=== PATIENT | male | born 1965 | race Caucasian/White ===

== ENCOUNTER 2020-12-24 14:45 | Inpatient (IN) | payer BC ==
[2020-12-25 14:17] VITALS: BMI 25.7
[2020-12-29] MEDS ORDERED: Tranexamic Acid 1,000 MG/10 ML VIAL ONE (10:44)
[2020-12-29] MEDS ORDERED: Levofloxacin 500 mg/D5W 100 ml Premix Bag ONE (10:45)
[2020-12-29] MEDS ORDERED: Sodium Chloride 0.9% 100 ML ONE (10:45)
[2020-12-29] MEDS ORDERED: Vancomycin 1.5 GRAM/300 ML BAG 1.5 GM in Premix Bag 1 BAG IVPB SCH (10:45)
[2020-12-29] MEDS ORDERED: Dexamethasone 4 mg/ml Vial ONE (10:54)
[2020-12-29] MEDS ORDERED: Midazolam HCl 2 mg/2 ml Vial ONE (10:59)
[2020-12-29] MEDS ORDERED: Fentanyl 100 MCG/2 ML VIAL ONE ×6 (10:59→18:00)
[2020-12-29] MEDS ORDERED: Bupivacaine HCl 0.5%/Epinephrine 1:200,000/PF 30 ml Vial ONE (11:15)
[2020-12-29] MEDS ORDERED: Dexamethasone 20 MG/5 ML VIAL ONE ×2 (11:15→12:01)
[2020-12-29] MEDS ORDERED: diphenhydrAMINE 25 MG CAP PO PRN (11:35)
[2020-12-29] MEDS ORDERED: HYDROcodone/Acetaminophen 10/325 mg Tablet PO PRN (11:35)
[2020-12-29] MEDS ORDERED: Promethazine HCl 25 MG/ML VIAL IM PRN ×2 (11:35→13:13)
[2020-12-29] MEDS ORDERED: Ondansetron PF 4 MG/2 ML Vial IVP PRN (11:35)
[2020-12-29] MEDS ORDERED: Zolpidem Tartrate 5 MG TAB PO PRN (11:35)
[2020-12-29] MEDS ORDERED: Fentanyl 100 MCG/2 ML VIAL SLOW IVP PRN (11:35)
[2020-12-29] MEDS ORDERED: Acetaminophen 325 MG TAB PO PRN (11:35)
[2020-12-29] MEDS ORDERED: Vancomycin 1 GM in Premix Bag 1 BAG IVPB SCH (11:45)
[2020-12-29] MEDS ORDERED: Ketorolac Tromethamine 30 MG/ML VIAL ONE (12:01)
[2020-12-29] MEDS ORDERED: PHENYLEPHRINE-NS 100 MCG/ML 10 ML SYRINGE ONE (12:01)
[2020-12-29] MEDS ORDERED: Rocuronium Bromide 10 MG/ML (10ML VIAL) ONE (12:01)
[2020-12-29] MEDS ORDERED: Ondansetron PF 4 MG/2 ML Vial ONE (12:01)
[2020-12-29] MEDS ORDERED: PROPOFOL 200 MG/20 ML VIAL ONE (12:01)
[2020-12-29] MEDS ORDERED: Lidocaine 1% PF 5 ML VIAL ONE (12:01)
[2020-12-29] MEDS ORDERED: Labetalol HCl 100 MG/20 ML VIAL ONE (12:01)
[2020-12-29] MEDS ORDERED: Meperidine HCl/PF 25 MG/ML VIAL SLOW IVP PRN (13:13)
[2020-12-29] MEDS ORDERED: HYDROmorphone 2 MG/ML VIAL SLOW IVP PRN (13:13)
[2020-12-29] MEDS ORDERED: Promethazine HCl 25 MG/ML VIAL SLOW IVP PRN (13:13)
[2020-12-29] MEDS ORDERED: SUGAMMADEX SODIUM 200 MG/2 ML VIAL ONE (13:16)
[2020-12-29] MEDS ORDERED: HYDROmorphone 2 MG/ML VIAL ONE (14:41)
[2020-12-29] MEDS: Sodium Chloride 0.9% 1,000 ML IV SCH ×2 (19:19→23:35)
[2020-12-29] MEDS: Ketorolac Tromethamine 30 MG/ML VIAL IVP SCH ×2 (19:19→21:13)
[2020-12-29] MEDS: Ferrous Gluconate 324 MG TAB PO SCH (20:31)
[2020-12-29] MEDS: Senokot S 8.6-50 MG TAB PO SCH (20:31)
[2020-12-29] MEDS: Aspirin 81 mg Enteric Coated Tablet PO SCH (20:31)
[2020-12-30] MEDS: HYDROcodone/Acetaminophen 10/325 mg Tablet PO PRN ×5 (00:46→21:23)
[2020-12-30] MEDS: Ketorolac Tromethamine 30 MG/ML VIAL IVP SCH ×3 (05:22→21:23)
[2020-12-30 05:55] LABS: Hemoglobin 12.8 g/dL (14.0-18.0); Mean Corpuscular HGB CONC 33.5 g/dL (32.0-36.0); Mean Corpuscular Hemoglobin 32.7 pg (27.0-31.0); Mean Corpuscular Volume 97.8 fL (78.0-98.0); Mean Platelet Volume 9.1 fL (7.4-10.4); Platelet Count 226 thou/uL (130-400); RBC Distribution Width 12.1 % (11.5-14.5); Red Blood Cell (RBC) Count 3.91 mill/uL (4.70-6.10); White Blood Cell (WBC) Count 11.1 thou/uL (4.8-10.8)
[2020-12-30] MEDS: Sodium Chloride 0.9% 1,000 ML IV SCH ×2 (07:14→14:52)
[2020-12-30] MEDS: Senokot S 8.6-50 MG TAB PO SCH ×2 (08:27→21:23)
[2020-12-30] MEDS: Multivitamin W/ Minerals 1 TAB PO SCH (08:27)
[2020-12-30] MEDS: Ferrous Gluconate 324 MG TAB PO SCH ×2 (08:28→21:23)
[2020-12-30] MEDS: Aspirin 81 mg Enteric Coated Tablet PO SCH ×2 (08:28→21:23)
[2020-12-31] MEDS: HYDROcodone/Acetaminophen 10/325 mg Tablet PO PRN ×2 (03:55→12:08)
[2020-12-31] MEDS: Sodium Chloride 0.9% 1,000 ML IV SCH (03:57)
[2020-12-31] MEDS: Ketorolac Tromethamine 30 MG/ML VIAL IVP SCH (06:05)
[2020-12-31 08:30] VITALS: TEMP 97.9
[2020-12-31] MEDS: Aspirin 81 mg Enteric Coated Tablet PO SCH (08:38)
[2020-12-31] MEDS: Multivitamin W/ Minerals 1 TAB PO SCH (08:38)
[2020-12-31] MEDS: Ferrous Gluconate 324 MG TAB PO SCH (08:38)
[2020-12-31] MEDS: Senokot S 8.6-50 MG TAB PO SCH (08:38)
[2020-12-31 12:38] VITALS: BP 132/81
== END 2020-12-31 14:44 | disposition home or self-care (01) | DRG 470 ==
LOC: SURG A 12-29 08:34 → SURG B 12-29 18:08
PROVIDERS: ADMIT Orthopaedic Surgery; ATTEND Orthopaedic Surgery
PROC: 0SRB039 Replacement of Left Hip Joint with Ceramic Synthetic Substitute, Cemented, Open Approach (ICD-10-PCS; principal; 2020-12-29)
DX: M16.12 Unilateral primary osteoarthritis, left hip (principal); D64.9 Anemia, unspecified; Z20.822 Contact with and (suspected) exposure to COVID-19
CPT/HCPCS: 36415; 85027; J1100; J1170; J1885; J1956; J2250; J2405; J2704; J3010; J3490

== ENCOUNTER 2020-12-24 14:55 | Outpatient (CLI) | payer BC ==
[2020-12-24 15:58] LABS: #Eosinphils 0.1 10x3/uL (0.0-0.5); #Monocytes 0.6 10x3/uL (0.0-1.1); #Neutrophils 3.8 10x3/uL (1.5-8.4); %Basophils 0.5 % (0.0-2.0); %Eosinophils 1.8 % (0.0-6.0); %Lymphocytes 25.7 % (18.0-47.0); %Monocytes 9.8 % (0.0-10.0); Mean Platelet Volume 11.4 fl (7.4-10.4); Platelet Count 274 10x3/uL (150-450); RBC Distribution Width 13.3 % (11.5-14.5); Red Blood Cell (RBC) Count 4.84 10x6/uL (4.32-5.72)
[2020-12-24 16:00] LABS: INR-International Normal Ratio 1.1; Prothrombin Time 11.9 sec (9.5-12.1)
[2020-12-24 16:51] LABS: Bilirubin Neg (Negative); Blood, Urine Negative (Negative); Clarity Clear (Clear); Glucose, Urine (Dipstick) Normal (Negative); Ketone, Urine Negative (Negative); Leukocyte Negative (Negative); Nitrite Negative (Negative); Protein, Urine (Dipstick) Negative (Neg-Trace); Urobilinogen Normal mg/dL (Less than 2)
[2020-12-24 17:14] LABS: Anion Gap 17 mmol/L (10-20); BUN (Urea Nitrogen) 26 mg/dL (8.4-25.7); Calc. Creatinine Clearance 0 mL/min (70-130); Calcium 9.3 mg/dL (7.8-10.44); Carbon Dioxide 23 mmol/L (22-29); Chloride 105 mmol/L (98-107); Glucose 96 mg/dL (70-105); Potassium 4.5 mmol/L (3.5-5.1); Sodium 140 mmol/L (136-145)
[2020-12-24 17:15] LABS: RBC/HPF 0-3 HPF (0-3); WBC/HPF 0-3 HPF (0-3)
[2020-12-24 17:17] LABS: Squamous Epithelial 0-3 HPF (0-3)
[2020-12-24 17:27] LABS: Bacteria/HPF None Seen HPF (None Seen)
[2020-12-25 01:53] LABS: SARS-CoV-2 PCR by NAA Not Detected (NotDetected)
== END 2020-12-24 14:56 | disposition home or self-care (01) ==
LOC: LABBT 14:55
PROVIDERS: ATTEND Orthopaedic Surgery
DX: Z01.818 Encounter for other preprocedural examination (principal); Z20.822 Contact with and (suspected) exposure to COVID-19; M16.12 Unilateral primary osteoarthritis, left hip
CPT/HCPCS: 80048; 81001; 85025; 85610; 87081; 87635; 93005; 93010; U0003; U0005